=== PATIENT | female | born 2000 | race African-American/Black ===

== ENCOUNTER 2022-03-06 09:54 | Emergency (ER) | payer MEDICAID ==
[~2022-03-06] VITALS: Ht 157.5 cm; Wt 67.0 kg
[2022-03-06 09:59] VITALS: BP 101/68
[2022-03-06 11:05] LABS: HEMATOCRIT. 37.4 % (36.0-48.0); HEMOGLOBIN. 12.5 g/dL (12.0-16.0); MEAN CORPUSCULAR HEMOGLOBIN 30.5 pg (28.0-32.0); MEAN CORPUSCULAR VOLUME 90.8 fL (81.0-99.0); MEAN PLATELET VOLUME 8.8 fl (7.4-10.4); PLATELET 281 x1000/uL (130-400); RED BLOOD CELL COUNT 4.11 mill/uL (4.2-5.4); RED CELL DISTRIBUTION WIDTH 13.7 % (11.6-14.6)
[2022-03-06 11:23] LABS: CHLORIDE 110 mEq/L (98-107)
[2022-03-06 12:02] LABS: HCG SCREEN NEGATIVE
[2022-03-06 12:16] LABS: PLATELET ESTIMATE NORMAL
== END 2022-03-06 12:12 | disposition home or self-care (01) ==
LOC: ER 09:54
DX: R07.89 Other chest pain (principal); K21.9 Gastro-esophageal reflux disease without esophagitis
CPT/HCPCS: 36415; 71045; 80053; 83880; 84484; 84703; 85025; 93005; 99285

== ENCOUNTER 2024-07-19 10:15 | Emergency (ER) | payer MEDICAID, OTHER ==
[~2024-07-19] VITALS: Ht 157.5 cm; Wt 69.0 kg
[2024-07-19 10:22] VITALS: O2SAT 100
[2024-07-19 10:25] VITALS: BP 127/93; PULSE 74; RESP 16; TEMP 98.9; O2SAT 98
[2024-07-19] MEDS ORDERED: IBUP-2029 MT (11:46)
[2024-07-19] MEDS ORDERED: AMOX1TAB16 MT (11:46)
== END 2024-07-19 12:17 | disposition home or self-care (01) ==
LOC: ER 10:15
DX: K02.9 Dental caries, unspecified (principal); K21.9 Gastro-esophageal reflux disease without esophagitis
CPT/HCPCS: 99283